=== PATIENT | male | born 1960 | race Caucasian/White ===

== ENCOUNTER 2018-08-07 10:05 | Outpatient (CLI) | payer BC ==
[2018-08-07] MEDS ORDERED: TIZA4CAP PO (10:53)
[2018-08-07] MEDS ORDERED: ZINC50TA3 PO (10:53)
[2018-08-07] MEDS ORDERED: CALC-534 PO (10:53)
[2018-08-07] MEDS ORDERED: ROSU5TAB PO (10:53)
[2018-08-07] MEDS ORDERED: [UNRECOGNIZED DRUG - OTHER] PO (10:53)
[2018-08-07] MEDS ORDERED: LUTE20CA2 PO (10:53)
[2018-08-07] MEDS ORDERED: IBUP200C8 PO (10:53)
[2018-08-07] MEDS ORDERED: CHOL500045 PO (10:53)
[2018-08-07] MEDS ORDERED: VALS1TAB26 PO (10:53)
[2018-08-07] MEDS ORDERED: TURM500C4 PO (10:53)
[2018-08-07] MEDS ORDERED: UBID100C41 PO (10:53)
[2018-08-07] MEDS ORDERED: OMEP20TA62 PO (10:53)
[2018-08-07 11:25] LABS: BASOPHILS # (AUTO) 0.04 x10^3/uL (0-0.1); BASOPHILS % (AUTO) 1 % (0-1); EOSINOPHILS # (AUTO) 0.08 x10^3/uL (0-0.4); EOSINOPHILS % (AUTO) 2 % (1-7); LYMPHOCYTES # (AUTO) 1.27 x10^3/uL (1-3.4); LYMPHOCYTES % (AUTO) 28 % (22-44); MD NO; MEAN CORPUSCULAR HEMOGLOBIN 32.2 pg (27.5-34.5); MEAN CORPUSCULAR HGB CONC 34.7 g/dL (33.2-36.2); MEAN CORPUSCULAR VOLUME 92.9 fL (81-97); MEAN PLATELET VOLUME 7.7 fL (7.4-10.4); MONOCYTES # (AUTO) 0.52 x10^3/uL (0.2-0.8); MONOCYTES % (AUTO) 12 % (2-9); NEUTROPHILS # (AUTO) 2.57 x10^3/uL (1.8-6.8); NEUTROPHILS % (AUTO) 57 % (42-75); PLATELET COUNT 259 x10^3/uL (130-400); RED BLOOD COUNT 4.66 x10^6/uL (4.38-5.82); RED CELL DISTRIBUTION WIDTH 13.3 % (9.4-14.8)
[2018-08-07 11:35] LABS: ALANINE AMINOTRANSFERASE 42 U/L (12-78); ALBUMIN 3.8 g/dL (3.4-5.0); ANION GAP 7 mmol/L (5-15); CALCIUM 9.3 mg/dL (8.5-10.1); CHLORIDE 112 mmol/L (98-107); CREATININE 0.84 mg/dL (0.7-1.3)
[2018-08-07 11:37] LABS: ALKALINE PHOSPHATASE 76 U/L (45-117); BILIRUBIN,TOTAL 0.3 mg/dL (0.2-1.0); INTERNATIONAL NORMALIZED RATIO 1.01 (0.93-1.1); PROTHROMBIN TIME 10.6 Seconds (9.6-11.5); TOTAL PROTEIN 7.3 g/dL (6.4-8.2)
[2018-08-07 12:05] LABS: HEMOGLOBIN A1C 5.3 % (4.2-6.3)
== END 2018-08-07 23:59 | disposition home or self-care (01) ==
LOC: STAR 10:05
PROVIDERS: ATTEND Orthopaedic Surgery
DX: Z01.818 Encounter for other preprocedural examination (principal); M16.12 Unilateral primary osteoarthritis, left hip; Z79.899 Other long term (current) drug therapy
CPT/HCPCS: 36415; 80053; 83036; 85025; 85610; 85730; 87081; 87147; 93005

== ENCOUNTER 2018-08-14 07:00 | Inpatient (IN) | payer BC ==
[~2018-08-14] VITALS: Ht 188 cm; Wt 98.6 kg
[~2018-08-14 07:00] MED LIST: CALC-534 PO; CHOL500045 PO; EPINEPHRINE 1 MG/ML, 1ML ONE; IBUP200C8 PO; KETOROLAC 60 MG/2 ML ONE; LUTE20CA2 PO; OMEP20TA62 PO; ROPIvacaine/PF 0.5%, 30 ML ONE; ROSU5TAB PO; SODIUM CHLORIDE 0.9% 50 ML ONE; TIZA4CAP PO; TRANEXAMIC ACID 100 MG/ML, 10ML ONE; TURM500C4 PO; UBID100C41 PO; VALS1TAB26 PO; VANCOMYCIN 1,000 MG ONE; ZINC50TA3 PO; [UNRECOGNIZED DRUG - OTHER] PO
[2018-08-14] MEDS ORDERED: LACTATED RINGERS 1,000 ML IV SCH (09:21)
[2018-08-14] MEDS ORDERED: GABAPENTIN 300 MG CAPSULE PO ONE (09:30)
[2018-08-14] MEDS ORDERED: ACETAMINOPHEN 500 MG TABLET PO ONE (09:30)
[2018-08-14] MEDS ORDERED: SCOPOLAMINE PATCH, 1.5MG PATCH.TD72 TD ONE (11:30)
[2018-08-14] MEDS ORDERED: ZOLPIDEM 5MG TABLET PO PRN (11:30)
[2018-08-14] MEDS ORDERED: ONDANSETRON 4 MG TABLET PO PRN (11:30)
[2018-08-14] MEDS ORDERED: HYDROcodone/APAP 5/325 TABLET PO PRN (11:30)
[2018-08-14] MEDS ORDERED: DIPHENHYDRAMINE 50 MG CAPSULE PO PRN (11:30)
[2018-08-14] MEDS ORDERED: ONDANSETRON 2MG/ML, 2ML IV PRN (11:30)
[2018-08-14] MEDS ORDERED: SENNA/DOCUSATE TABLET PO PRN (11:30)
[2018-08-14] MEDS ORDERED: OMEPRAZOLE 20 MG CAPSULE.DR PO PRN (11:30)
[2018-08-14] MEDS ORDERED: MAGNESIUM HYDROXIDE 8%, 30ML UDC PO PRN (11:30)
[2018-08-14] MEDS ORDERED: ACETAMINOPHEN 650 MG/20.3 ML UDC PO PRN (11:30)
[2018-08-14] MEDS ORDERED: BISACODYL 10 MG SUPP PR PRN (11:30)
[2018-08-14] MEDS ORDERED: TIZANIDINE 4MG TABLET PO PRN (11:30)
[2018-08-14] MEDS ORDERED: ROSUVASTATIN CALCIUM 5 MG PO SCH (11:30)
[2018-08-14] MEDS ORDERED: FENTANYL PF 250 MCG/5ML ONE (11:58)
[2018-08-14] MEDS ORDERED: MIDAZOLAM 1 MG/ML, 2ML ONE (11:58)
[2018-08-14] MEDS ORDERED: METOCLOPRAMIDE 5 MG/ML, 2ML IV PRN (14:00)
[2018-08-14] MEDS ORDERED: hydrALAzine 20 MG/ML, 1ML IV PRN (14:00)
[2018-08-14] MEDS ORDERED: METOPROLOL 1 MG/ML, 5ML IV PRN (14:00)
[2018-08-14] MEDS ORDERED: MEPERIDINE/PF 25MG/0.5ML IVPush PRN (14:00)
[2018-08-14] MEDS ORDERED: ALBUTEROL/IPRATROPIUM 2.5MG/0.5MG, 3 ML NPPB PRN (14:00)
[2018-08-14] MEDS ORDERED: OXYcodone 5 MG/5 ML ORAL.SOL UDC PO PRN (14:00)
[2018-08-14] MEDS ORDERED: LABETALOL 5MG/ML, 20ML IV PRN (14:00)
[2018-08-14] MEDS ORDERED: LORazepam 2 MG/ML, 1ML IVPush PRN (14:00)
[2018-08-14] MEDS ORDERED: FENTANYL PF 100 MCG/2ML ONE (14:17)
[2018-08-14] MEDS ORDERED: OXYcodone 5 MG/5 ML ORAL.SOL UDC ONE (14:17)
[2018-08-14] MEDS: FENTANYL PF 100 MCG/2ML IV PRN ×3 (14:20→16:50)
[2018-08-14] MEDS ORDERED: HYDROmorphone 2 MG/ML, 1ML ONE (14:22)
[2018-08-14] MEDS: HYDROmorphone 2 MG/ML, 1ML IVPush PRN ×5 (14:25→15:01)
[2018-08-14] MEDS ORDERED: GLYCOPYRROLATE 0.2MG/1ML, 5ML ONE (14:57)
[2018-08-14] MEDS ORDERED: NEOSTIGMINE 1 MG/ML, 10ML ONE (14:57)
[2018-08-14] MEDS ORDERED: ROCURONIUM 10MG/ML,5ML ONE (14:57)
[2018-08-14] MEDS ORDERED: CEFAZOLIN 1,000 MG ONE (14:57)
[2018-08-14] MEDS ORDERED: DEXAMETHASONE 4 MG/ML, 1ML ONE (14:57)
[2018-08-14] MEDS ORDERED: ONDANSETRON 2MG/ML, 2ML ONE (14:57)
[2018-08-14] MEDS ORDERED: PROPOFOL 10 MG/ML, 20ML ONE (14:57)
[2018-08-14] MEDS: NS + 20MEQ KCL 1,000 ML IV SCH (16:55)
[2018-08-14] MEDS: ASPIRIN 81 MG TABLET EC PO SCH (17:16)
[2018-08-14 18:59] VITALS: BP 126/82
[2018-08-14] MEDS: DOCUSATE 100 MG CAPSULE PO SCH (21:57)
[2018-08-14] MEDS: CEFAZOLIN PMX 2GM/50ML 50 ML IVPB SCH (23:18)
[2018-08-14] MEDS: OXYcodone IR 5MG TABLET PO PRN (23:25)
[2018-08-15 00:58] VITALS: BP 134/68
[2018-08-15] MEDS: OXYcodone IR 5MG TABLET PO PRN ×2 (03:34→08:12)
[2018-08-15] MEDS: NS + 20MEQ KCL 1,000 ML IV SCH (05:00)
[2018-08-15] MEDS: CEFAZOLIN PMX 2GM/50ML 50 ML IVPB SCH (05:53)
[2018-08-15] MEDS: ASPIRIN 81 MG TABLET EC PO SCH (05:53)
[2018-08-15] MEDS ORDERED: DEXAMETHASONE 4 MG/ML, 1ML IVPush SCH (06:00)
[2018-08-15 06:31] VITALS: BP 113/68
[2018-08-15 08:01] VITALS: BP 119/74
[2018-08-15] MEDS: DOCUSATE 100 MG CAPSULE PO SCH (08:09)
[2018-08-15] MEDS ORDERED: MELO7.5T31 PO (09:52)
[2018-08-15] MEDS ORDERED: TRAM50TA2 PO (09:52)
[2018-08-15] MEDS ORDERED: OXYC5CAP2 PO (09:52)
[2018-08-15] MEDS ORDERED: ASPI-515 PO (09:58)
== END 2018-08-15 11:26 | disposition home or self-care (01) | DRG 470 ==
LOC: ORIP 09:01 → 4NOR 15:39 → DCLOUNGE 08-15 11:16
PROVIDERS: ADMIT Orthopaedic Surgery; ATTEND Orthopaedic Surgery
PROC: 0SR906A Replacement of Right Hip Joint with Oxidized Zirconium on Polyethylene Synthetic Substitute, Uncemented, Open Approach (ICD-10-PCS; principal; 2018-08-14 12:15)
DX: M16.12 Unilateral primary osteoarthritis, left hip (principal); I10 Essential (primary) hypertension; Z88.0 Allergy status to penicillin; K21.9 Gastro-esophageal reflux disease without esophagitis
CPT/HCPCS: 36415; 72170; 76000; 85014; 85018; 93005; C1713; G0378; J0171; J0690; J1100; J1170; J1885; J2250; J2405; J2704; J2710; J2795; J3010; J3370; J3480; C1776; J7120